=== PATIENT | female | born 1940 | race Caucasian/White ===

== ENCOUNTER 2016-12-02 11:19 | Inpatient (IN) | payer MEDICARE ==
--- NOTE | ~2016-12-02 | HP ---
History And Physical [place] [id number] [facility] [place]. [address] NAME: JACK VICENTE : 42 STATUS : ADM IN [facility]#: [id number] AGE: 76 ADM/REG DATE : 12/02/16 MR#: [id number] REPORT SERV DATE: 12/02/16 DICTATED BY: ILIANA EAST DATE: 12/02/16 REPORT STATUS : Draft TRANSCRIBED BY: MODL DATE: 12/02/16 DATE OF ADMISSION: 12/02/2016 PRIMARY CARE DOCTOR: Unclear. This is a direct admission from [facility]. HISTORY OF PRESENT ILLNESS: This is a 76-year-old pleasant female. She has a known past medical history of apparent heart catheterization confirmed coronary artery disease in the past, neuropathy, diabetes possibly to borderline, and history of TIA. Next past medical history is chronic pain syndrome, on Lortab 10 t.i.d. at home as well as tricyclic use of Elavil unclear reason, as well as having a history of PEs, acute bilateral PE in 2012 with respiratory failure at that time, restless legs syndrome. She was on Xarelto at that time. The patient came in to [facility] via EMS totally altered, responsive only to sternal rub, then was given unclear dose of Narcan. The patient improved, thought to have been taking zealous amounts of narcotics as an outpatient. However, then her urine showed back to have pyuria with possible synergy of altered mental status associated with opioids. The patient vitals are 171/90, afebrile, 89 pulse, 18 respirations, 99% room air with a sugar of 124, requested admission here, which happily accepted the patient. She had a CT of the brain there, did not show any acute intracranial pathology. Her troponin was negative. Her DOA was positive for tricyclics and opiates. Her creatinine is 1.3, unclear baseline. Significant pyuria on UA. She also had white count 11,500. The patient is a poor historian. She does not know what year it is. She does know the number to her family. She is not able to endorse fevers, chills, nausea, vomiting, diarrhea, chest pain, chest pressure, or shortness of breath. PAST MEDICAL HISTORY: See above. PAST SURGICAL HISTORY: See above. REVIEW OF SYSTEMS: Done, see HPI. Otherwise, negative. FAMILY HISTORY: Apparent dementia in one family member, hypertension in one family member, gleaning from prior records. HOME MEDICATIONS: See MAR. Continue what is relevant. Pharmacy to do the MAR as well as having allergies unclear, we will need to have the nurse call the family regarding confirmation. PHYSICAL EXAMINATION: History And Physical [address] [address] NAME: JACK VICENTE : 42 STATUS : ADM IN [facility]#: [id number] AGE: 76 ADM/REG DATE : 12/02/16 MR#: [id number] REPORT SERV DATE: 12/02/16 DICTATED BY: ILIANA EAST DATE: 12/02/16 REPORT STATUS : Draft TRANSCRIBED BY: WALTER DATE: 12/02/16 VITAL SIGNS: At [facility], see above. GENERAL: No acute distress. HEENT: PERRLA. No scleral icterus. CARDIOVASCULAR: Appeared to be regular rate and rhythm. No murmur. RESPIRATORY: Decreased breath sounds bibasilar. Otherwise, no wheezes or crackles. ABDOMEN: Nontender, nondistended. Positive bowel sounds. EXTREMITIES: No edema. No ecchymosis. NEURO: She is A and O x4/4. GCS of 14. PSYCH: Unable to assess. LABORATORY DATA: See above. We will get my own labs here as well. ASSESSMENT: 1. Severe sepsis due to urinary tract infection with acute toxic encephalopathy as a result. 2. Hypertension. 3. Acute kidney injury versus chronic kidney disease. PLAN: We will go ahead and admit this patient. Placed on IV Rocephin, which apparently was started also at [facility]. CT abdomen and pelvis rule out pyelonephritis, panculture as stated. We will also get pharmacy to place due to home MAR. Does not appear to have any overt tricyclic overdose. As a result, we will resume her Elavil at lower dose tomorrow starting at night. We will hold off on her narcotics and just give her Dilaudid for opioid naive. The patient's opioid naive dosing given her zealous use is likely an altered mental status explained by synergy with urinary tract infection and possible acute kidney injury retention of opiate. We will get a FENA, see rest of my orders. All questions were answered. It took well over 60 minutes to do. Reference [employer] and eblizz. WST/MODL Iliana East DO / [id number] CC: Iliana East DO
--- NOTE | ~2016-12-02 | DS ---
Discharge Summary [facility] [address] [place]. [address] NAME: JACK VICENTE : 42 STATUS : ADM IN PAT#: [id number] AGE: 76 ADM/REG DATE : 12/02/16 MR#: [id number] REPORT SERV DATE: 12/05/16 DICTATED BY: ILIANA ALVAREZ DATE: 12/05/16 REPORT STATUS : Draft TRANSCRIBED BY: MODL DATE: 12/05/16 ADMISSION DATE: 12/02/2016 DISCHARGE DATE: 12/05/2016 HOSPITAL COURSE: This 76-year-old female with known history of coronary artery disease per heart catheterization in the past, neuropathy, diabetes, has been borderline, history of TIA. She is not on a statin due to drug intolerance. Known history of PE 2012, restless legs syndrome, tricyclic use of Elavil for sleep. Came as direct admission from [facility], initially was totally altered per EMS, responsive only to sternal rub, but then she had vigorous response to Narcan. The patient had a CT of the brain there that showed no acute intracranial pathology. Her DOA was positive for tricyclics and opiates. She was deemed at severe sepsis with toxic encephalopathy due to UTI and likely retention of narcotics as a result of RAUL that had improved. The patient is now amenable for discharge. Her blood cultures have no growth to date. She has had clinically significant improvement on IV Rocephin, switched over to oral Omnicef. She had a MRI of the brain here given this persistent dizziness, for which it showed no infarction, no bleed. 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 If she were to have any bradykinesia or any resting tremor could consider possible Parkinson's. She also had CT abdomen and pelvis regarding her UTI, which showed no acute pathology. The patient was deemed by the Physical therapy to need to go to a facility; however, the patient does not want to go to a facility. We will make contact with the family regarding this and send the patient home with home health, home PT. Certainly, she needs to reduce her narcotic use. She may have forgotten that she had taken her narcotics earlier that morning, and may have taken four plus pills of her Lortab 10 mg that may have caused opiate overdose at that time. As a result, I spoke to the daughter a couple of days ago, and she states she was going to lock up her narcotics and only distribute with her presence. We will ask for followup with Neurology for likely dementia. DISCHARGE MEDICATIONS: Discharge medications will include Elavil 50 p.o. at bedtime as well as aspirin 325 p.o. daily as well as carvedilol 3.125 p.o. b.i.d., as well as cefdinir 300 p.o. b.i.d. for five more days, Lasix 20 p.o. daily as well as Lortab 5/325 p.o. b.i.d. p.r.n. pain. We will consider possible use of pravastatin as an outpatient. She has drug intolerance to "smothering". She is on carvedilol for mortality reduction with CAD. If she needed any other antihypertensive control, could consider possible ARB. CONSULTS: None. PROCEDURES: None. DISCHARGE DIAGNOSES: Severe sepsis, urinary tract infection, encephalopathy, acute kidney injury, polypharmacy, hypertension, dizziness, could consider possible Newton-Hallpike maneuver, as an outpatient with home PT. Discharge Summary [address] [address] NAME: JACK VICENTE : 42 STATUS : ADM IN [facility]#: [id number] AGE: 76 ADM/REG DATE : 12/02/16 MR#: [id number] REPORT SERV DATE: 12/05/16 DICTATED BY: ILIANA ALVAREZ DATE: 12/05/16 REPORT STATUS : Draft TRANSCRIBED BY: WALTER DATE: 12/05/16 SUSANA/WALTER Iliana Alvarez DO / [id number] CC: DO Iram Cardoza
[~2016-12-02 11:19] MED LIST: AMIT75 PO; ASAB PO; BUM1 PO; LORTAB10 PO; LYRICA75 PO; NEUR600 PO; NITROSTAT0.4 MG SL; XARELTO15 MG PO; XARELTO20 MG PO
[2016-12-02 14:58] LABS: HEMOGLOBIN 13.6 g/dL (12.0-16.0); MEAN CORPUSCULAR HEMOGLOB 29.8 pg (26.0-34.0); MEAN CORPUSCULAR VOLUME 89.7 fL (80-100); MEAN PLATELET VOLUME 11.7 fL (9.2-13.0); PLATELET COUNT 219 10/3/uL (150-400); RBC DISTRIBUTION WIDTH 14.6 % (12.0-16.0); RED CELL COUNT 4.57 10/6/uL (4.0-5.6); WHITE BLOOD CELLS 11.2 10/3/uL (4.5-10.5)
[2016-12-02 14:59] LABS: MANUAL DIFF YES %; MEAN CORPUS HGB CONC 33.2 g/dL (32.0-36.0)
[2016-12-02 15:23] LABS: A/G RATIO 0.9 (0.7-1.9); ALBUMIN 3.2 G/DL (3.5-5.0); CHLORIDE, SERUM 104 MMOL/L (96-112); CO2 (CARBON DIOXIDE) 30 MMOL/L (24-34); GLOBULIN 3.4 G/DL (2.5-4.1); PHOSPHORUS, SERUM 3.2 MG/DL (2.5-4.5); POTASSIUM, SERUM 3.9 MMOL/L (3.5-5.3); SGOT(AST) 25 U/L (5-40); SGPT(ALT) 23 U/L (5-65); SODIUM, SERUM 144 MMOL/L (135-148); TOTAL BILIRUBIN 0.2 MG/DL (0-1.2); TOTAL PROTEIN 6.6 G/DL (6.0-8.5); TROPONIN I <0.02 NG/ML (<0.05)
[2016-12-02 15:24] LABS: ALKALINE PHOSPHATASE 139 U/L (45-117); BUN (BLOOD UREA NITROGEN) 17 MG/DL (6-23); GFR AFRICAN AMERICAN 46 ML/MIN (>=60); GFR NON AFRICAN AMERICAN 40 ML/MIN (>=60); GLUCOSE, SERUM 156 MG/DL (60-99)
[2016-12-02 15:35] LABS: BASOPHILS 1 %; BASOPHILS ABSOLUTE (CALC) 0.11 10/3/uL (0.0-0.16); LYMPHOCYTES 45 %; LYMPHOCYTES ABSOLUTE (CALC) 5.04 10/3/uL (0.67-4.30); MONOCYTES 7 %; MONOCYTES ABSOLUTE (CALC) 0.78 10/3/uL (0.21-1.20); NEUTROPHILS ABSOLUTE (CALC) 5.26 10/3/uL (2.02-8.40); PLATELET ESTIMATE ADQ (ADEQUATE); SEGMENTED NEUTROPHIL (0) 47 %; TOTAL NUCLEATED CELLS 100
[2016-12-02] MEDS ORDERED: NORCO1 TA1 PO (16:04)
[2016-12-02] MEDS ORDERED: AMIT50 PO (16:04)
[2016-12-02] MEDS ORDERED: AMIT100 PO (16:04)
[2016-12-02 16:05] LABS: PROCALCITONIN <0.05 ng/mL (<0.5)
[2016-12-02] MEDS ORDERED: ASA5GR PO (16:05)
[2016-12-02] MEDS ORDERED: L20 PO (16:05)
[2016-12-02] MEDS ORDERED: NITROSTAT0.4 MG SL (16:06)
[2016-12-03 04:47] LABS: HEMATOCRIT 39.4 % (36.0-48.0); HEMOGLOBIN 12.9 g/dL (12.0-16.0); MEAN CORPUS HGB CONC 32.7 g/dL (32.0-36.0); MEAN CORPUSCULAR HEMOGLOB 29.3 pg (26.0-34.0); MEAN CORPUSCULAR VOLUME 89.3 fL (80-100); MEAN PLATELET VOLUME 11.6 fL (9.2-13.0); PLATELET COUNT 195 10/3/uL (150-400); RBC DISTRIBUTION WIDTH 14.3 % (12.0-16.0); RED CELL COUNT 4.41 10/6/uL (4.0-5.6); WHITE BLOOD CELLS 10.5 10/3/uL (4.5-10.5)
[2016-12-03 04:48] LABS: MANUAL DIFF YES %
[2016-12-03 05:04] LABS: BUN (BLOOD UREA NITROGEN) 17 MG/DL (6-23); CALCIUM, SERUM 8.3 MG/DL (8.5-10.4); CHLORIDE, SERUM 107 MMOL/L (96-112); CO2 (CARBON DIOXIDE) 29 MMOL/L (24-34); CREATININE 1.15 MG/DL (0.55-1.02); GFR AFRICAN AMERICAN 54 ML/MIN (>=60); GFR NON AFRICAN AMERICAN 47 ML/MIN (>=60); PHOSPHORUS, SERUM 3.5 MG/DL (2.5-4.5); POTASSIUM, SERUM 3.8 MMOL/L (3.5-5.3); SODIUM, SERUM 142 MMOL/L (135-148)
[2016-12-03 05:05] LABS: GLUCOSE, SERUM 103 MG/DL (60-99)
[2016-12-03 05:58] LABS: BAND NEUTROPHILS 3 %; EOSINOPHILS 3 %; EOSINOPHILS ABSOLUTE (CALC) 0.32 10/3/uL (0.0-0.53); IMMATURE GRANS ABSOLUTE (CALC) 0.11 10/3/uL (0.0-0.11); LYMPHOCYTES 46 %; LYMPHOCYTES ABSOLUTE (CALC) 4.83 10/3/uL (0.67-4.30); METAMYELOCYTES 1 %; NEUTROPHILS ABSOLUTE (CALC) 5.25 10/3/uL (2.02-8.40); SEGMENTED NEUTROPHIL (0) 47 %; TOTAL NUCLEATED CELLS 100
[2016-12-03 05:59] LABS: PLATELET ESTIMATE ADQ (ADEQUATE); RBC MORPHOLOGY NORM (NORMAL)
[2016-12-04 07:36] LABS: HEMATOCRIT 39.7 % (36.0-48.0); HEMOGLOBIN 13.2 g/dL (12.0-16.0); MANUAL DIFF YES %; MEAN CORPUS HGB CONC 33.2 g/dL (32.0-36.0); MEAN CORPUSCULAR HEMOGLOB 29.3 pg (26.0-34.0); MEAN PLATELET VOLUME 11.7 fL (9.2-13.0); PLATELET COUNT 223 10/3/uL (150-400); RBC DISTRIBUTION WIDTH 14.4 % (12.0-16.0); RED CELL COUNT 4.51 10/6/uL (4.0-5.6)
[2016-12-04 07:52] LABS: CALCIUM, SERUM 8.4 MG/DL (8.5-10.4); CHLORIDE, SERUM 107 MMOL/L (96-112); CO2 (CARBON DIOXIDE) 28 MMOL/L (24-34); CREATININE 0.99 MG/DL (0.55-1.02); GFR AFRICAN AMERICAN 65 ML/MIN (>=60); GFR NON AFRICAN AMERICAN 56 ML/MIN (>=60); GLUCOSE, SERUM 96 MG/DL (60-99); PHOSPHORUS, SERUM 2.9 MG/DL (2.5-4.5); POTASSIUM, SERUM 3.9 MMOL/L (3.5-5.3); SODIUM, SERUM 142 MMOL/L (135-148)
[2016-12-04 07:54] LABS: BUN (BLOOD UREA NITROGEN) 13 MG/DL (6-23)
[2016-12-04 08:04] LABS: EOSINOPHILS 2 %; LYMPHOCYTES 48 %; MONOCYTES 7 %; PLATELET ESTIMATE ADQ (ADEQUATE); RBC MORPHOLOGY NORM (NORMAL); SEGMENTED NEUTROPHIL (0) 43 %; TOTAL NUCLEATED CELLS 100
[2016-12-05 07:27] LABS: HEMATOCRIT 39.8 % (36.0-48.0); HEMOGLOBIN 13.5 g/dL (12.0-16.0); MEAN CORPUS HGB CONC 33.9 g/dL (32.0-36.0); MEAN CORPUSCULAR HEMOGLOB 29.6 pg (26.0-34.0); MEAN CORPUSCULAR VOLUME 87.3 fL (80-100); MEAN PLATELET VOLUME 11.3 fL (9.2-13.0); PLATELET COUNT 224 10/3/uL (150-400); RBC DISTRIBUTION WIDTH 14.6 % (12.0-16.0); RED CELL COUNT 4.56 10/6/uL (4.0-5.6); WHITE BLOOD CELLS 12.1 10/3/uL (4.5-10.5)
[2016-12-05 07:28] LABS: MANUAL DIFF YES %
[2016-12-05 07:38] LABS: BUN (BLOOD UREA NITROGEN) 15 MG/DL (6-23); CALCIUM, SERUM 8.6 MG/DL (8.5-10.4); CHLORIDE, SERUM 106 MMOL/L (96-112); CO2 (CARBON DIOXIDE) 32 MMOL/L (24-34); GFR AFRICAN AMERICAN 57 ML/MIN (>=60); GFR NON AFRICAN AMERICAN 49 ML/MIN (>=60); GLUCOSE, SERUM 95 MG/DL (60-99); PHOSPHORUS, SERUM 3.4 MG/DL (2.5-4.5); SODIUM, SERUM 142 MMOL/L (135-148)
[2016-12-05 07:49] LABS: BAND NEUTROPHILS 1 %; BASOPHILS 1 %; BASOPHILS ABSOLUTE (CALC) 0.12 10/3/uL (0.0-0.16); EOSINOPHILS 4 %; EOSINOPHILS ABSOLUTE (CALC) 0.48 10/3/uL (0.0-0.53); LYMPHOCYTES 51 %; LYMPHOCYTES ABSOLUTE (CALC) 6.17 10/3/uL (0.67-4.30); MONOCYTES 11 %; MONOCYTES ABSOLUTE (CALC) 1.33 10/3/uL (0.21-1.20); NEUTROPHILS ABSOLUTE (CALC) 3.99 10/3/uL (2.02-8.40); SEGMENTED NEUTROPHIL (0) 32 %; TOTAL NUCLEATED CELLS 100
[2016-12-05 07:50] LABS: PLATELET ESTIMATE ADQ (ADEQUATE)
[2016-12-05] MEDS ORDERED: COREG3 PO (13:16)
[2016-12-05] MEDS ORDERED: OMNICEF300 PO (13:17)
== END 2016-12-05 16:43 | disposition home health service (06) | DRG 871 ==
LOC: 1SO 11:19
PROVIDERS: Internal Medicine
DX: A41.9 Sepsis, unspecified organism (principal); G93.41 Metabolic encephalopathy; N17.9 Acute kidney failure, unspecified; N39.0 Urinary tract infection, site not specified; R65.20 Severe sepsis without septic shock; G62.9 Polyneuropathy, unspecified; G89.4 Chronic pain syndrome; I10 Essential (primary) hypertension; T40.2X5A Adverse effect of other opioids, initial encounter; I25.10 Atherosclerotic heart disease of native coronary artery without angina pectoris; G25.81 Restless legs syndrome; E11.9 Type 2 diabetes mellitus without complications; Z79.82 Long term (current) use of aspirin; Z79.891 Long term (current) use of opiate analgesic; Z79.899 Other long term (current) drug therapy; Z86.73 Personal history of transient ischemic attack (TIA), and cerebral infarction without residual deficits; Z86.711 Personal history of pulmonary embolism; Z88.8 Allergy status to other drugs, medicaments and biological substances
CPT/HCPCS: 70551; 71020; 74176; 80048; 80053; 82140; 82962; 83735; 84100; 84145; 84443; 84484; 85025; 87040; 93005; 97110-GP; 97116-GP; 97161-GP; A9270-GY; G8978-CK-GP; G8979-CJ-GP